=== PATIENT | female | born 1990 ===

== ENCOUNTER 2016-10-15 23:11 | Emergency (ER) | payer MEDICAID ==
[2016-10-15 23:26] VITALS: O2SAT 99
[2016-10-16] MEDS ORDERED: Sodium Chloride 0.9% 1,000 ML IV STA (00:30)
[2016-10-16 00:41] LABS: VENOUS BLOOD GAS BASE EXCESS 2.5 mmol/L (0.0-2.0); VENOUS BLOOD GAS PCO2 37 mmHg (40-60); VENOUS BLOOD GAS PO2 56 mm/Hg (30-55); VENOUS BLOOD PH 7.46 (7.32-7.43)
--- NOTE | 2016-10-16 00:54 | ED PDOC ---
HPI: General Adult Time Seen by Provider: 10/16/16 00:00 Chief Complaint (Nursing): Abdominal Pain Chief Complaint (Provider): diffuse bodyaches History Per: Patient History/Exam Limitations: no limitations Onset/Duration Of Symptoms: Days Have you had recent travel within the past 21 days to any of the following countries: [place], [place], [place] or [place]?: No Additional Complaint(s): The patient is a 26yo female, presents to the ED for evaluation of generalized bodyaches, abdominal pain and associated nausea, for the past 6 days. She also reports fever for the past day as well as cough and tightness in her chest. She denies taking any medications for her symptoms. Patient denies any vomiting dysuria, frequency, hematuria and offers no additional medical complaints. Past Medical History Reviewed: Historical Data, Nursing Documentation, Vital Signs Vital Signs: Last Vital Signs Temp 98.0 F 10/16/16 05:41 Pulse 84 10/16/16 05:41 Resp 18 10/15/16 23:23 BP 96/50 L 10/16/16 05:41 Pulse Ox 99 10/16/16 05:51 - Medical History PMH: No Chronic Diseases - Surgical History Surgical History: No Surg Hx - Family History Family History: States: Unknown Family Hx - Social History Current smoker - smoking cessation education provided: No Alcohol: None Drugs: Denies - Immunization History Hx Tetanus Toxoid Vaccination: No Hx Influenza Vaccination: No Hx Pneumococcal Vaccination: No - Home Medications Home Medications: Ambulatory Orders Medication Instructions Recorded Ibuprofen 1 tab PO Q6H PRN #15 tab 07/27/15 Naproxen 1 tab PO BID #20 tab 03/08/16 Sulfamethoxazole/Trimethoprim 1 tab PO BID #14 tab 03/08/16 [Bactrim DS 800 mg-160 mg] oxyCODONE/Acetaminophen [Percocet 1 ea PO Q6 #10 tab 03/08/16 5/325 mg Tab] Clindamycin [Cleocin] 300 mg PO QID #40 cap 03/10/16 DiphenhydrAMINE [Benadryl] 50 mg PO Q8 PRN #30 cap 03/17/16 levoFLOXacin 500 mg in D5W 500 mg IVPB DAILY #10 tab 10/16/16 [Levaquin 500MG] - Allergies Allergies/Adverse Reactions: Allergies Allergy/AdvReac Type Severity Reaction Status Date / Time No Known Allergies Allergy Verified 03/08/16 21:25 Review of Systems ROS Statement: Except As Marked, All Systems Reviewed And Found Negative Constitutional: Positive for: Fever, Weakness, Other (bodyaches) Cardiovascular: Positive for: Other (tightness) Respiratory: Positive for: Cough Gastrointestinal: Positive for: Nausea, Abdominal Pain, Diarrhea. Negative for : Vomiting Genitourinary Female: Negative for: Dysuria, Frequency, Hematuria Physical Exam - Reviewed Nursing Documentation Reviewed: Yes Vital Signs Reviewed: Yes - Physical Exam Appears: Positive for: Well, Non-toxic, No Acute Distress Head Exam: Positive for: ATRAUMATIC, NORMAL INSPECTION, NORMOCEPHALIC Skin: Positive for: Normal Color, Warm, DRY Eye Exam: Positive for: EOMI, Normal appearance, PERRL Neck: Positive for: Normal, Supple Cardiovascular/Chest: Positive for: Regular Rate, Rhythm Respiratory: Positive for: Normal Breath Sounds. Negative for: Respiratory Distress Gastrointestinal/Abdominal: Positive for: Normal Exam, Soft, Tenderness (mild diffuse tenderness) Extremity: Positive for: Normal ROM. Negative for: Deformity, Swelling Neurologic/Psych: Positive for: Alert, Oriented. Negative for: Motor/Sensory Deficits - Laboratory Results Result Diagrams: 10/16/16 00:31 10/16/16 00:31 - ECG O2 Sat by Pulse Oximetry: 99 (RA) Pulse Ox Interpretation: Normal Medical Decision Making Medical Decision Making: Time: 0020 Impression: Diffuse bodyaches, abdominal pain; Rule out Pneumonia Plan: -- Labs -- Rapid Flu -- chest x-ray -- Zofran 4 mg IV -- Toradol 30 mg IV -- Pepcid 20 mg IV -- IV Fluids Reassess Time: 0158 + Neutrophils, no white count. No UTI noted. Time: 021 Patient report persistent right flank pain. Ordered CT AP w/o contrast. Time: 033 CT AP IMPRESSION: Right lower lobe pneumonia No acute intra-abdominal or pelvic findings. Time: 043 Chest x-ray IMPRESSION: 1. Probable RLL pneumonia. Followup to resolution to exclude underlying pathology. 2. Incidental/non-acute findings are described above. Patient given IV antibiotics. answered questions pt given po abx and need to follow up outpt pt feels currently improved Time: 0500 Patient stable for discharge home. Advised to follow up with pcp. Scribe Attestation: Documented by Jacquelin Fatima acting as a scribe for Mark Leahy MD. Provider Attestation: All medical record entries made by the Scribe were at my direction and personally dictated by me. I have reviewed the chart and agree that the record accurately reflects my personal performance of the history, physical exam, medical decision making, and the department course for this patient. I have also personally directed, reviewed, and agree with the discharge instructions and disposition. Disposition - Clinical Impression Clinical Impression: Fever, Pneumonia - Patient ED Disposition Is Patient to be Admitted: No Counseled Patient/Family Regarding: Studies Performed, Diagnosis, Need For Followup - Disposition Referrals: Rick Hendricks, SHRAVAN, VOICER [Primary Care Provider] - Disposition: Routine/Home Disposition Time: 09:00 Condition: IMPROVED Additional Instructions: follow up with your primary doctor in 1-2 days return to the ED with any worsening or concerning symptoms. Prescriptions: levoFLOXacin 500 mg in D5W [Levaquin 500MG] 500 mg IVPB DAILY #10 tab Instructions: Bacterial Pneumonia (ED) Forms: [employer] (Bengali)
[2016-10-16 00:57] LABS: BASO % 0.1 % (0.0-2.0); EOS # 0.1 K/uL (0.0-0.7); HEMOGLOBIN 12.8 g/dL (12.0-16.0); LYMPH # 0.6 K/uL (1.0-4.3); LYMPH % 7.8 % (20.0-40.0); MEAN CELL VOLUME 95.2 fl (81.0-99.0); MEAN CORPUSCULAR HEMOGLOBIN 31.8 pg (27.0-31.0); MEAN CORPUSCULAR HGB CONC 33.4 g/dL (33.0-37.0); MEAN PLATELET VOLUME 10.6 fl (7.2-11.7); MONO # 0.4 K/uL (0.0-0.8); MONO % 5.9 % (0.0-10.0); NEUT # 6.2 K/uL (1.8-7.0); NEUT % 85.2 % (50.0-75.0); NRBC % 0.1 % (0.0-0.0); PLATELET COUNT 106 K/uL (130-400); RBC 4.02 Mil/uL (3.80-5.20); RED CELL DISTRIBUTION WIDTH 13.2 % (11.5-14.5); WHITE BLOOD COUNT 7.2 K/uL (4.8-10.8)
[2016-10-16 01:10] LABS: ALB/GLOB RATIO 1.4 (1.0-2.1); ALBUMIN 4.6 g/dL (3.5-5.0); ALT/SGPT 46 U/L (9-52); AST/SGOT 33 U/L (14-36); BLOOD UREA NITROGEN 13 mg/dl (7-17); CALCIUM 9.5 mg/dL (8.4-10.2); GFR AFRICAN-AMERICAN > 60; GFR NON-AFRICAN AMERICAN > 60
[2016-10-16 01:37] LABS: SQUAMOUS EPITHIAL 4 /hpf (0-5); URINE BILIRUBIN NEGATIVE (NEGATIVE); URINE BLOOD NEGATIVE (NEGATIVE); URINE CLARITY SLIGHTY-CLOUDY (Clear); URINE COLOR YELLOW (YELLOW); URINE GLUCOSE (UA) NEG (Normal); URINE LEUKOCYTE ESTERASE NEG Leu/uL (Negative); URINE NITRATE NEGATIVE (NEGATIVE); URINE PROTEIN NEGATIVE (NEGATIVE)
[2016-10-16 01:52] LABS: ACANTHOCYTES SLIGHT; ANISOCYTOSIS SLIGHT; EOSINOPHIL 1 % (0-7); HYPOCHROMIC SLIGHT; LYMPHOCYTE 17 % (20-50); MONOCYTE 6 % (0-10); NEUTROPHIL 76 % (42-75); PLATELET ESTIMATE MARKEDLY DECREASED (NORMAL); TOTAL CELLS COUNTED 100
[2016-10-16] MEDS ORDERED: Azithromycin 500 MG in Sodium Chloride 0.9% 250 ML IVPB STA (03:32)
[2016-10-16] MEDS ORDERED: cefTRIAXone (Rocephin) 1 gm Inj ONE (04:07)
--- NOTE | 2016-10-16 04:28 | RAD ---
EXAM: XR Chest, 2 Views CLINICAL HISTORY: 26 years old, female; Signs and symptoms; Cough and fever; Symptoms not specified; Additional info: Fever cough TECHNIQUE: Frontal and lateral views of the chest. COMPARISON: CT, 10/16/2016 FINDINGS: Lungs: Minimal patchy airspace disease RIGHT lower lobe, better visualized on CT. Pleural space: No pleural effusion. No pneumothorax. Heart: No cardiomegaly. Mediastinum: Unremarkable. Bones/joints: No acute fracture. IMPRESSION: 1. Probable RLL pneumonia. Followup to resolution to exclude underlying pathology. 2. Incidental/non-acute findings are described above.
[2016-10-16] MEDS ORDERED: Morphine 4 MG/ML VIAL ONE (04:37)
[2016-10-16] MEDS ORDERED: Morphine 4 MG/ML VIAL IV ONE (04:42)
[2016-10-16] MEDS ORDERED: Azithromycin 500 MG IV IVPB ONE (05:24)
--- NOTE | 2016-10-16 08:04 | CT ---
PROCEDURE: CT Abdomen and Pelvis without intravenous or oral contrast HISTORY: r flank pain COMPARISON: 09/15/2013 CT abdomen and pelvis. TECHNIQUE: Technique Contiguous axial images of the abdomen and pelvis without intravenous or oral contrast. Radiation dose: Total exam DLP = 546.57 mGy-cm. This CT exam was performed using one or more of the following dose reduction techniques: Automated exposure control, adjustment of the mA and/or kV according to patient size, and/or use of iterative reconstruction technique. FINDINGS: LOWER THORAX: Right lower lobe infiltrate consistent with pneumonia. LIVER: Unremarkable. GALLBLADDER AND BILE DUCTS: Unremarkable. PANCREAS: Unremarkable. No ductal dilatation. SPLEEN: Unremarkable. No splenomegaly. ADRENALS: Unremarkable. KIDNEYS AND URETERS: Unremarkable. No hydronephrosis. BLADDER: Unremarkable. No calculus. REPRODUCTIVE: Intrauterine contraceptive device (IUD) identified APPENDIX: Unremarkable. Normal appendix. STOMACH AND BOWEL: Unremarkable. No obstruction. No gross mural thickening. PERITONEUM: Unremarkable. No significant fluid collection. No free air. LYMPH NODES: Unremarkable. No enlarged lymph nodes. VASCULATURE: Unremarkable. No aortic aneurysm. BONES: No acute fracture. OTHER FINDINGS: None . IMPRESSION: No acute findings in the abdomen retroperitoneum or pelvis. Right lower lobe infiltrate suggestive of pneumonia. Concordant results (preliminary interpretation) provided by [employer]. Procedure Completed: 02:33. Preliminary ([facility]) Report: Dictated and Authenticated: 03:20. Final Interpretation: 08:02. October 16, 2016.
[2016-10-16 08:06] VITALS: BP 110/68; PULSE 79; RESP 16; TEMP 98.1
== END 2016-10-16 08:05 | disposition home or self-care (01) ==
LOC: H.ER 23:11
DX: J18.9 Pneumonia, unspecified organism (principal); R05 Cough

== ENCOUNTER 2017-08-13 15:45 | Emergency (ER) | payer MEDICAID ==
[2017-08-13 15:54] VITALS: RESP 16; TEMP 97.7; O2SAT 98
[2017-08-13] MEDS ORDERED: Sodium Chloride 0.9% 1,000 ML IV STA (16:29)
[2017-08-13 17:31] LABS: BASO % 0.2 % (0.0-2.0); EOS % 0.9 % (0.0-4.0); HEMOGLOBIN 11.7 g/dL (12.0-16.0); LYMPH # 2.1 K/uL (1.0-4.3); LYMPH % 39.3 % (20.0-40.0); MEAN CELL VOLUME 91.4 fl (81.0-99.0); MEAN CORPUSCULAR HEMOGLOBIN 30.9 pg (27.0-31.0); MEAN CORPUSCULAR HGB CONC 33.8 g/dL (33.0-37.0); MEAN PLATELET VOLUME 10.3 fl (7.2-11.7); MONO # 0.5 K/uL (0.0-0.8); MONO % 9.6 % (0.0-10.0); NEUT # 2.7 K/uL (1.8-7.0); NRBC % 0.1 % (0.0-0.0); RBC 3.78 Mil/uL (3.80-5.20); RED CELL DISTRIBUTION WIDTH 14.3 % (11.5-14.5); WHITE BLOOD COUNT 5.4 K/uL (4.8-10.8)
--- NOTE | 2017-08-13 18:29 | US ---
HISTORY: Dysfunctional vaginal bleeding Menstrual status: LMP completing 2 weeks duration. IUD placed 3 years ago COMPARISON: None available. TECHNIQUE: Transvaginal only. Real -time technique with 2D, duplex and color Doppler FINDINGS: UTERUS: Measures 4.2 x 5.3 x 8.2 cm. Normal in size and appearance. No fibroid or other mass lesion seen. ENDOMETRIUM: Measures 5.9 mm in diameter. Intrauterine contraceptive device (IUD) identified in satisfactory position. CERVIX: No cervical abnormality identified.Incidental finding: Nabothian cysts the largest measures less than 1 cm RIGHT OVARY: Measures 2.2 x 2.3 x 3.1 cm. No solid mass. Normal flow. Multiple sub cm follicles and simple cyst 1.2 x 1.4 cm. LEFT OVARY: Measures 1.3 x 2.5 x 2.3 cm. No solid mass. Normal flow. Multiple subcentimeter follicles. FREE FLUID: No significant free fluid noted. OTHER FINDINGS: None. IMPRESSION: Satisfactory position of the intrauterine contraceptive device. Additional benign and/or incidental findings described above.
--- NOTE | 2017-08-13 18:50 | ED PDOC ---
HPI: Abdomen Time Seen by Provider: 08/13/17 16:30 Chief Complaint (Nursing): Abdominal Pain Chief Complaint (Provider): vaginal bleeding/headache History Per: Patient (26 y/o female here with complaint of ongoing vaginal bleeding x 2 weeks. Notes additional headache. Patient states she usually has normal menses.) Past Medical History Reviewed: Historical Data, Nursing Documentation, Vital Signs Vital Signs: Last Vital Signs Temp 97.7 F 08/13/17 15:52 Pulse 75 08/13/17 15:52 Resp 16 08/13/17 15:52 BP 107/69 08/13/17 15:52 Pulse Ox 98 08/13/17 15:52 - Family History Family History: States: Unknown Family Hx - Immunization History Hx Tetanus Toxoid Vaccination: No Hx Influenza Vaccination: No Hx Pneumococcal Vaccination: No - Home Medications Home Medications: Ambulatory Orders Medication Instructions Recorded Ibuprofen 1 tab PO Q6H PRN #15 tab 07/27/15 Naproxen 1 tab PO BID #20 tab 03/08/16 Sulfamethoxazole/Trimethoprim 1 tab PO BID #14 tab 03/08/16 [Bactrim DS 800 mg-160 mg] oxyCODONE/Acetaminophen [Percocet 1 ea PO Q6 #10 tab 03/08/16 5/325 mg Tab] Clindamycin [Cleocin] 300 mg PO QID #40 cap 03/10/16 DiphenhydrAMINE [Benadryl] 50 mg PO Q8 PRN #30 cap 03/17/16 levoFLOXacin 500 mg in D5W 500 mg IVPB DAILY #10 tab 10/16/16 [Levaquin 500MG] Naproxen 375 mg PO Q8 PRN #15 tablet 08/13/17 - Allergies Allergies/Adverse Reactions: Allergies Allergy/AdvReac Type Severity Reaction Status Date / Time unknown medication Allergy RASH Uncoded 08/13/17 15:51 Review of Systems ROS Statement: Except As Marked, All Systems Reviewed And Found Negative Genitourinary Female: Positive for: Vaginal Bleeding Neurological: Positive for: Headache Physical Exam - Reviewed Nursing Documentation Reviewed: Yes Vital Signs Reviewed: Yes - Physical Exam Appears: Positive for: Well, Non-toxic, No Acute Distress Head Exam: Positive for: ATRAUMATIC, NORMAL INSPECTION, NORMOCEPHALIC Skin: Positive for: Normal Color, Warm, DRY Eye Exam: Positive for: EOMI, Normal appearance, PERRL ENT: Positive for: Normal ENT Inspection Neck: Positive for: Normal, Painless ROM Cardiovascular/Chest: Positive for: Regular Rate, Rhythm Respiratory: Positive for: CNT, Normal Breath Sounds Gastrointestinal/Abdominal: Positive for: Normal Exam, Soft Pelvic Exam: Positive for: External Exam Normal, Speculum Exam Normal, Active Bleeding. Negative for: Bimanual Exam Normal, No Cerv. Motion Tender Back: Positive for: Normal Inspection Extremity: Positive for: Normal ROM Neurologic/Psych: Positive for: Alert, Oriented - Laboratory Results Result Diagrams: 08/13/17 16:51 Urine POC: Negative - ECG O2 Sat by Pulse Oximetry: 98 - Progress ED Course And Treament: us pelvic: IMPRESSION: Satisfactory position of the intrauterine contraceptive device. Additional benign and/or incidental findings described above. NS 1 liter 500 ml per hour x 1 liter reglan 10 mg iv x 1 dose Disposition - Clinical Impression Clinical Impression: Dysmenorrhea - Patient ED Disposition Is Patient to be Admitted: No - Disposition [facility] Disposition: Routine/Home Disposition Time: 18:52 Condition: FAIR Prescriptions: Naproxen 375 mg PO Q8 PRN #15 tablet PRN Reason: Pain, Moderate (4-7) Instructions: Menstrual Cramps (DC) Forms: [employer] (Greek) Print Language: OCCITAN
[2017-08-13 18:55] VITALS: BP 104/56; PULSE 69
== END 2017-08-13 19:01 | disposition home or self-care (01) ==
LOC: H.ER 15:45
DX: N94.6 Dysmenorrhea, unspecified (principal); R51 Headache
CPT/HCPCS: 76830; 81025; 85025; 96361; 96374; 99285; J2765; J7030

== ENCOUNTER 2017-08-27 15:24 | Emergency (ER) | payer MEDICAID ==
--- NOTE | 2017-08-27 16:32 | ED PDOC ---
HPI: Female Pain Time Seen by Provider: 08/27/17 15:54 Chief Complaint (Nursing): Abdominal Pain Chief Complaint (Provider): abdominal pain History Per: Patient History/Exam Limitations: no limitations Onset/Duration Of Symptoms: Days (x3), Worse Since (x3 days) Current Symptoms Are (Timing): Still Present Associated Symptoms: Back Pain, Urinary Symptoms (dysuria), Other (vaginal bleeding). denies: Fever, Chills Additional Complaint(s): Es Patel is a 26 year old female, with a past medical history of IUD x3 years ago, who presents to the emergency department complaining of a worsening abdominal pain, back pain, dysuria and vaginal bleeding onset for x3 days. Patient reports suprapubic pain with urination. She was originally seen here on August 13, she had an ultrasound done which came back normal and was diagnosed with dysmenorrhea. Patient was seen by MD in clinic who told her the ED had done all tests and there wasn't much he could do. However, patient states for the past x3 days the bleeding has worsened which prompted ED visit today. She denies any fever, chills, or other medical complaints. PMD: [facility] Abnormal Vaginal Bleeding: Yes Past Medical History Reviewed: Historical Data, Nursing Documentation, Vital Signs Vital Signs: Last Vital Signs Temp 98.1 F 08/27/17 15:30 Pulse 68 08/27/17 15:30 Resp 16 08/27/17 15:30 BP 118/73 08/27/17 15:30 Pulse Ox 97 08/27/17 15:30 - Medical History PMH: No Chronic Diseases - Surgical History Other surgeries: IUD - Family History Family History: States: Unknown Family Hx - Immunization History Hx Tetanus Toxoid Vaccination: No Hx Influenza Vaccination: No Hx Pneumococcal Vaccination: No - Home Medications Home Medications: Ambulatory Orders Medication Instructions Recorded Ibuprofen 1 tab PO Q6H PRN #15 tab 07/27/15 Naproxen 1 tab PO BID #20 tab 03/08/16 Sulfamethoxazole/Trimethoprim 1 tab PO BID #14 tab 03/08/16 [Bactrim DS 800 mg-160 mg] oxyCODONE/Acetaminophen [Percocet 1 ea PO Q6 #10 tab 03/08/16 5/325 mg Tab] Clindamycin [Cleocin] 300 mg PO QID #40 cap 03/10/16 DiphenhydrAMINE [Benadryl] 50 mg PO Q8 PRN #30 cap 03/17/16 levoFLOXacin 500 mg in D5W 500 mg IVPB DAILY #10 tab 10/16/16 [Levaquin 500MG] Naproxen 375 mg PO Q8 PRN #15 tablet 08/13/17 Nitrofurantoin Macrocrystals 100 mg PO BID #10 cap 08/27/17 [Macrobid] - Allergies Allergies/Adverse Reactions: Allergies Allergy/AdvReac Type Severity Reaction Status Date / Time No Known Allergies Allergy Verified 08/27/17 15:36 Review of Systems ROS Statement: Except As Marked, All Systems Reviewed And Found Negative Constitutional: Negative for: Fever, Chills Gastrointestinal: Positive for: Abdominal Pain (suprapubic) Genitourinary Female: Positive for: Dysuria, Vaginal Bleeding Musculoskeletal: Positive for: Back Pain Physical Exam - Reviewed Nursing Documentation Reviewed: Yes Vital Signs Reviewed: Yes - Physical Exam Appears: Positive for: Non-toxic Head Exam: Positive for: ATRAUMATIC, NORMOCEPHALIC Skin: Positive for: Normal Color, Warm, Dry Eye Exam: Positive for: Normal appearance Neck: Positive for: Painless ROM Cardiovascular/Chest: Positive for: Regular Rate, Rhythm. Negative for: Murmur Respiratory: Positive for: Normal Breath Sounds. Negative for: Respiratory Distress Gastrointestinal/Abdominal: Positive for: Tenderness (mild suprapubic) Back: Negative for: L CVA Tenderness, R CVA Tenderness, Vertebral Tenderness Extremity: Positive for: Normal ROM (upper and lower extremities). Negative for : Deformity, Swelling Neurologic/Psych: Positive for: Alert, Oriented. Negative for: Motor/Sensory Deficits - ECG O2 Sat by Pulse Oximetry: 97 (RA) Pulse Ox Interpretation: Normal Medical Decision Making Medical Decision Making: Time: 15:54 Initial Impression: dysuria & vaginal bleeding. Differential includes UTI, dysfunctional uteral bleed, displaced IUD. Initial Plan: --Urine --Urine dipstick --Pelvis/Transvag US --Reevaluation 08/13/17 Pelvis Transvag US FINDINGS: UTERUS: Measures 4.2 x 5.3 x 8.2 cm. Normal in size and appearance. No fibroid or other mass lesion seen. ENDOMETRIUM: Measures 5.9 mm in diameter. Intrauterine contraceptive device (IUD) identified in satisfactory position. CERVIX: No cervical abnormality identified.Incidental finding: Nabothian cysts the largest measures less than 1 cm RIGHT OVARY: Measures 2.2 x 2.3 x 3.1 cm. No solid mass. Normal flow. Multiple sub cm follicles and simple cyst 1.2 x 1.4 cm. LEFT OVARY: Measures 1.3 x 2.5 x 2.3 cm. No solid mass. Normal flow. Multiple subcentimeter follicles. FREE FLUID: No significant free fluid noted. OTHER FINDINGS: None. IMPRESSION: Satisfactory position of the intrauterine contraceptive device. Additional benign and/or incidental findings described above. 08/27/2017 Transvag Pelvic US FINDINGS: UTERUS: Measures 9.3 x 4.6 x 5.0 cm. Normal in size and appearance. No fibroid or other mass lesion seen. ENDOMETRIUM: Measures 6 mm in diameter. Intrauterine device noted appropriately positioned within the endometrial cavity. CERVIX: No cervical abnormality identified. RIGHT OVARY: Measures 2.9 x 2.0 x 2.7 cm. No solid mass. Normal flow. LEFT OVARY: Measures 2.3 x 2.2 x 2.1 cm. No solid mass. Normal flow. FREE FLUID: No significant free fluid noted. OTHER FINDINGS: None. IMPRESSION: Intrauterine device appropriately positioned within uterus. Otherwise unremarkable examination. Results were discussed with patient. She is stable and will be discharged. Return to the ED is symptoms persist or worsen. Follow up with PMD. ----- Scribe Attestation: Documented by Nato Dan, acting as a scribe for Pippa Armas MD. Provider Scribe Attestation: All medical record entries made by the Scribe were at my direction and personally dictated by me. I have reviewed the chart and agree that the record accurately reflects my personal performance of the history, physical exam, medical decision making, and the department course for this patient. I have also personally directed, reviewed, and agree with the discharge instructions and disposition. Disposition - Clinical Impression Clinical Impression: DUB (dysfunctional uterine bleeding), Dysuria - Patient ED Disposition Is Patient to be Admitted: No Doctor Will See Patient In The: Office Counseled Patient/Family Regarding: Studies Performed, Diagnosis, Need For Followup - Disposition Referrals: [facility] [Outside] Disposition: Routine/Home Disposition Time: 18:30 Condition: GOOD Additional Instructions: Follow up with your PCP in 2-3 days. Prescriptions: Nitrofurantoin Macrocrystals [Macrobid] 100 mg PO BID #10 cap Instructions: Dysuria, Adult (DC), Heavy Periods, Intrauterine Devices (IUD) Print Language: WELSH
--- NOTE | 2017-08-27 18:22 | US ---
HISTORY: suprapic pain vaginal bleeding COMPARISON: 08/13/2017 TECHNIQUE: Transabdominal and transvaginal FINDINGS: UTERUS: Measures 9.3 x 4.6 x 5.0 cm. Normal in size and appearance. No fibroid or other mass lesion seen. ENDOMETRIUM: Measures 6 mm in diameter. Intrauterine device noted appropriately positioned within the endometrial cavity. CERVIX: No cervical abnormality identified. RIGHT OVARY: Measures 2.9 x 2.0 x 2.7 cm. No solid mass. Normal flow. LEFT OVARY: Measures 2.3 x 2.2 x 2.1 cm. No solid mass. Normal flow. FREE FLUID: No significant free fluid noted. OTHER FINDINGS: None. IMPRESSION: Intrauterine device appropriately positioned within uterus. Otherwise unremarkable examination.
[2017-08-27 19:19] VITALS: BP 128/75; PULSE 76; RESP 17; TEMP 97.8; O2SAT 100
== END 2017-08-27 19:18 | disposition home or self-care (01) ==
LOC: H.ER 15:24
DX: N93.8 Other specified abnormal uterine and vaginal bleeding (principal); R30.0 Dysuria

== ENCOUNTER 2017-10-10 11:51 | Emergency (ER) | payer MEDICAID ==
[2017-10-10 12:00] VITALS: RESP 16; O2SAT 98
--- NOTE | 2017-10-10 12:50 | ED PDOC ---
HPI: Female Pain Chief Complaint (Provider): pos preg test, vaginal spotting History Per: Patient Onset/Duration Of Symptoms: Days Pain Scale Rating Of: 7 Quality Of Discomfort: Cramping Associated Symptoms: Nausea Additional Complaint(s): 27 yo F with no known medical hx presented to ED today with complaint of pelvic pain and vaginal bleeding x3 days; had positive test at home 10 days ago. Ten days ago she took test at home which was positive; went to her clinic in [place] where she states they did bloodwork, but as of 2 days ago results were not back. Two days ago she started having spotting, reddish brown, which continued this morning, and prompted her ED visit today. Also c/o nausea. Denies symptoms of dysuria, itching, burning, increased frequency of urination. Pt was last in [facility] ED for vaginal bleeding on 08/27, at that time had IUD which she states was removed on 08/28 due to continued bleeding. Pt states she was bleeding from mid-July to 08/29, the day after IUD removal. PMD: clinic in [place] PMH: none Surg: none OBhx: ; 2 NVD in 2009 and 2014, no complications Soc hx: denies tobacco, alcohol, drug use Allergies: nkda Meds: none <Lydia Greene - Last Filed: 10/10/17 15:45> <Delia Sanches - Last Filed: 10/10/17 16:41> Time Seen by Provider: 10/10/17 12:19 Chief Complaint (Nursing): Female Genitourinary Supervising Attending Note - Supervising Attending Note The Documented history was done by the: Physician Brewery Representative The documented physical exam was done by the: Physician Brewery Representative The documented procedures were done by the: Physician Brewery Representative - Attestation: I have personally seen and examined this patient.: Yes I have fully participated in the care of the patient.: Yes I have reviewed all pertinent clinical information, including history, physical exam and plan: Yes <Delia Sanches - Last Filed: 10/10/17 16:41> Past Medical History Reviewed: Nursing Documentation, Vital Signs Vital Signs: Last Vital Signs Temp 98.1 F 10/10/17 11:56 Pulse 70 10/10/17 11:56 Resp 16 10/10/17 11:56 BP 112/71 10/10/17 11:56 Pulse Ox 98 10/10/17 11:56 - Medical History PMH: No Chronic Diseases - Surgical History Surgical History: No Surg Hx - Family History Family History: States: Unknown Family Hx - Social History Alcohol: None Drugs: Denies - Immunization History Hx Tetanus Toxoid Vaccination: No Hx Influenza Vaccination: No Hx Pneumococcal Vaccination: No <Lydia Greene - Last Filed: 10/10/17 15:45> Vital Signs: Last Vital Signs Temp 98.1 F 10/10/17 11:56 Pulse 70 10/10/17 11:56 Resp 16 10/10/17 11:56 BP 112/71 10/10/17 11:56 Pulse Ox 98 10/10/17 16:16 <Delia Sanches - Last Filed: 10/10/17 16:41> - Home Medications Home Medications: Ambulatory Orders Medication Instructions Recorded Ibuprofen 1 tab PO Q6H PRN #15 tab 07/27/15 Naproxen 1 tab PO BID #20 tab 03/08/16 Sulfamethoxazole/Trimethoprim 1 tab PO BID #14 tab 03/08/16 [Bactrim DS 800 mg-160 mg] oxyCODONE/Acetaminophen [Percocet 1 ea PO Q6 #10 tab 03/08/16 5/325 mg Tab] Clindamycin [Cleocin] 300 mg PO QID #40 cap 03/10/16 DiphenhydrAMINE [Benadryl] 50 mg PO Q8 PRN #30 cap 03/17/16 levoFLOXacin 500 mg in D5W 500 mg IVPB DAILY #10 tab 10/16/16 [Levaquin 500MG] Naproxen 375 mg PO Q8 PRN #15 tablet 08/13/17 Nitrofurantoin Macrocrystals 100 mg PO BID #10 cap 08/27/17 [Macrobid] Nitrofurantoin Macrocrystals 100 mg PO BID #14 cap 10/10/17 [Macrobid] - Allergies Allergies/Adverse Reactions: Allergies Allergy/AdvReac Type Severity Reaction Status Date / Time No Known Allergies Allergy Verified 08/27/17 15:36 Review of Systems ROS Statement: Except As Marked, All Systems Reviewed And Found Negative Gastrointestinal: Positive for: Nausea Genitourinary Female: Positive for: Vaginal Bleeding, Pelvic Pain <Gershman,Lydia - Last Filed: 10/10/17 15:45> Physical Exam - Reviewed Nursing Documentation Reviewed: Yes Vital Signs Reviewed: Yes - Physical Exam Appears: Positive for: No Acute Distress Head Exam: Positive for: ATRAUMATIC Skin: Positive for: Normal Color, Warm, Dry Eye Exam: Positive for: Normal appearance, EOMI Cardiovascular/Chest: Positive for: Regular Rate, Rhythm Respiratory: Positive for: Normal Breath Sounds Gastrointestinal/Abdominal: Positive for: Bowel Sounds, Soft, Tenderness (LLQ) Pelvic Exam: Positive for: External Exam Normal, Bimanual Exam Normal, No Cerv. Motion Tender, No Masses, Discharge (yellow tinged discharge), Other (speculum exam and bimanual exam performed with educational institution curator: ERYN Ruiz in room). Negative for: Active Bleeding Extremity: Positive for: Normal ROM, Capillary Refill (2 sec). Negative for: Tenderness, Calf Tenderness, Deformity Neurologic/Psych: Positive for: Alert, Oriented, Other (no focal deficits) <Lydia Greene - Last Filed: 10/10/17 15:45> - Laboratory Results Result Diagrams: 10/10/17 13:03 10/10/17 13:30 - ECG O2 Sat by Pulse Oximetry: 98 <Lydia Greene - Last Filed: 10/10/17 15:45> - Laboratory Results Result Diagrams: 10/10/17 13:03 10/10/17 13:30 <Delia Sanches - Last Filed: 10/10/17 16:41> Medical Decision Making Medical Decision Making: Upreg positive; Impression: pelvic pain and spotting in setting of positive test - UA - CBC - CMP - bHCG - Type and Screen - Transvaginal U/s Pelvic exam (speculum exam and bimanual exam) done in presence of educational institution curator, pt' s ERYN Ruiz. On pelvic exam- yellowish discharge noted- GC/CL cultures taken. Transvaginal u/s: Ultrasound findings of intrauterine gestation early term with gestational sac without pole. Yolk sac identified. Gestational age based on sac measurements 6 weeks. Pt stable for discharge home; advised to take vitamins and to establish care with provider. Pt discussed w/ Dr. Hill and Dr. Sanches. <SaqiboliverLydia - Last Filed: 10/10/17 15:45> Disposition - Patient ED Disposition Is Patient to be Admitted: No - Disposition Disposition: Routine/Home Disposition Time: 15:49 <Lydia Greene - Last Filed: 10/10/17 15:45> <Delia Sanches - Last Filed: 10/10/17 16:41> - Clinical Impression Clinical Impression: Abdominal pain during , UTI (urinary tract infection) - Disposition Referrals: [facility] [Outside] Condition: STABLE Additional Instructions: Please start taking vitamins. Please establish care with provider - referral given to [facility] in [place], or you may return to your previous provider, or another provider of your choice. May use tylenol for pain, do not use ibuprofen (advil, motrin, aleve). Return to ED if bleeding/cramping, severe pain occurs. Prescriptions: Nitrofurantoin Macrocrystals [Macrobid] 100 mg PO BID #14 cap Instructions: Urinary Tract Infections in Adults Forms: [facility] (Armenian) Print Language: URDU
[2017-10-10 13:11] LABS: BASO % 0.3 % (0.0-2.0); EOS % 0.4 % (0.0-4.0); HEMOGLOBIN 12.7 g/dL (12.0-16.0); LYMPH % 37.9 % (20.0-40.0); MEAN CELL VOLUME 91.5 fl (81.0-99.0); MEAN CORPUSCULAR HGB CONC 33.9 g/dL (33.0-37.0); MEAN PLATELET VOLUME 9.5 fl (7.2-11.7); MONO # 0.6 K/uL (0.0-0.8); NEUT # 2.7 K/uL (1.8-7.0); NEUT % 50.4 % (50.0-75.0); NRBC % 0.1 % (0.0-0.0); RBC 4.09 Mil/uL (3.80-5.20); RED CELL DISTRIBUTION WIDTH 14.8 % (11.5-14.5); WHITE BLOOD COUNT 5.4 K/uL (4.8-10.8)
[2017-10-10 15:21] LABS: ALBUMIN 4.5 g/dL (3.5-5.0); ALT/SGPT 29 U/L (9-52); AST/SGOT 29 U/L (14-36); BLOOD UREA NITROGEN 11 mg/dl (7-17); CALCIUM 9.5 mg/dL (8.4-10.2); GFR NON-AFRICAN AMERICAN > 60
--- NOTE | 2017-10-10 15:26 | US ---
Date of service: 10/10/2017 HISTORY: Pelvic pain, vaginal bleeding. Beta HCG results: 00189. Recent removal of IUD (08/27/2017). COMPARISON: 08/27/2017 pelvic ultrasound TECHNIQUE: Standard protocol for this study/examination. FINDINGS: UTERUS: Measures 6 x 9.7 cm. Normal in size and appearance. No fibroid or other mass lesion seen. ENDOMETRIUM: Gestational sac measurement 1.66 cm corresponds to gestational age of 6 weeks. Yolk sac identified. No pole apparent. CERVIX: No cervical abnormality identified. RIGHT OVARY: Measures 2 x 3.1 x 3.6 cm. No solid mass. Normal flow. LEFT OVARY: Measures 1.2 x 3.2 x 2.9 cm. No solid mass. Normal flow. FREE FLUID: No significant free fluid noted. OTHER FINDINGS: None. IMPRESSION: Ultrasound findings of intrauterine gestation early term with gestational sac without pole. Yolk sac is identified. Gestational age by LMP 6 weeks. Gestational age based on sac measurement 6 weeks.
[2017-10-10 15:27] LABS: ALB/GLOB RATIO 1.3 (1.0-2.1)
[2017-10-10 16:28] LABS: SQUAMOUS EPITHIAL 9 /hpf (0-5); URINE BACTERIA MANY (<OCC); URINE BILIRUBIN NEGATIVE (NEGATIVE); URINE BLOOD MODERATE (NEGATIVE); URINE CLARITY CLOUDY (Clear); URINE COLOR YELLOW (YELLOW); URINE GLUCOSE (UA) NEG (Normal); URINE LEUKOCYTE ESTERASE LARGE Leu/uL (Negative); URINE PROTEIN NEGATIVE (NEGATIVE); URINE UROBILINOGEN 0.2-1.0 mg/dL (0.2-1.0)
[2017-10-10 19:30] VITALS: BP 114/78; PULSE 72; TEMP 98.4
== END 2017-10-10 17:05 | disposition home or self-care (01) ==
LOC: H.ER 11:51
DX: O23.40 Unspecified infection of urinary tract in pregnancy, unspecified trimester (principal)

== ENCOUNTER 2017-10-14 16:42 | Emergency (ER) | payer MEDICAID ==
[2017-10-14 17:18] VITALS: TEMP 98.2; O2SAT 100
[2017-10-14 18:24] LABS: SQUAMOUS EPITHIAL 2 /hpf (0-5); URINE BACTERIA OCC (<OCC); URINE BILIRUBIN NEGATIVE (NEGATIVE); URINE BLOOD MODERATE (NEGATIVE); URINE CLARITY SLIGHTY-CLOUDY (Clear); URINE COLOR YELLOW (YELLOW); URINE GLUCOSE (UA) NEG (Normal); URINE LEUKOCYTE ESTERASE MOD Leu/uL (Negative); URINE PROTEIN NEGATIVE (NEGATIVE); URINE UROBILINOGEN 0.2-1.0 mg/dL (0.2-1.0)
--- NOTE | 2017-10-14 18:27 | ED PDOC ---
HPI: Female Pain Time Seen by Provider: 10/14/17 17:27 Chief Complaint (Nursing): Female Genitourinary Chief Complaint (Provider): Female Genitourinary History Per: Patient History/Exam Limitations: no limitations Onset/Duration Of Symptoms: Hrs (x1) Current Symptoms Are (Timing): Still Present Additional Complaint(s): 27 year old female, at approximately 6 weeks in , arrives to ED with a complaint of bright red vaginal bleeding, onset of 1 hour. She denies any vaginal pain, nausea or vomiting (no change from her usual morning sickness) . PMD: [facility] Past Medical History Reviewed: Historical Data, Nursing Documentation, Vital Signs Vital Signs: Last Vital Signs Temp 98.2 F 10/14/17 17:16 Pulse 66 10/14/17 17:16 Resp 18 10/14/17 17:16 BP 103/63 10/14/17 17:16 Pulse Ox 100 10/14/17 17:16 - Medical History PMH: No Chronic Diseases - Surgical History Surgical History: No Surg Hx - Family History Family History: States: No Known Family Hx - Social History Current smoker - smoking cessation education provided: No Alcohol: None Drugs: Denies - Immunization History Hx Tetanus Toxoid Vaccination: No Hx Influenza Vaccination: No Hx Pneumococcal Vaccination: No - Home Medications Home Medications: Ambulatory Orders Medication Instructions Recorded Ibuprofen 1 tab PO Q6H PRN #15 tab 07/27/15 Naproxen 1 tab PO BID #20 tab 03/08/16 Sulfamethoxazole/Trimethoprim 1 tab PO BID #14 tab 03/08/16 [Bactrim DS 800 mg-160 mg] oxyCODONE/Acetaminophen [Percocet 1 ea PO Q6 #10 tab 03/08/16 5/325 mg Tab] Clindamycin [Cleocin] 300 mg PO QID #40 cap 03/10/16 DiphenhydrAMINE [Benadryl] 50 mg PO Q8 PRN #30 cap 03/17/16 levoFLOXacin 500 mg in D5W 500 mg IVPB DAILY #10 tab 10/16/16 [Levaquin 500MG] Naproxen 375 mg PO Q8 PRN #15 tablet 08/13/17 Nitrofurantoin Macrocrystals 100 mg PO BID #10 cap 08/27/17 [Macrobid] Nitrofurantoin Macrocrystals 100 mg PO BID #14 cap 10/10/17 [Macrobid] - Allergies Allergies/Adverse Reactions: Allergies Allergy/AdvReac Type Severity Reaction Status Date / Time No Known Allergies Allergy Verified 10/14/17 17:16 Review of Systems ROS Statement: Except As Marked, All Systems Reviewed And Found Negative Gastrointestinal: Negative for: Nausea, Vomiting (no change from her usual morning sickness) Genitourinary Female: Positive for: Vaginal Bleeding (bright red). Negative for : Pelvic Pain Physical Exam - Reviewed Nursing Documentation Reviewed: Yes Vital Signs Reviewed: Yes - Physical Exam Appears: Positive for: Well, No Acute Distress Head Exam: Positive for: ATRAUMATIC, NORMOCEPHALIC Skin: Positive for: Warm, Dry Eye Exam: Positive for: EOMI, PERRL ENT: Positive for: Tonsillar Exudate Neck: Positive for: Painless ROM, Supple Respiratory: Negative for: Accessory Muscle Use, Respiratory Distress Gastrointestinal/Abdominal: Positive for: Soft, Other (Assisted by Anca VARMA). Negative for: Tenderness, Mass, Guarding, Rebound Pelvic Exam: Positive for: External Exam Normal, No Cerv. Motion Tender, No Masses, Blood (dark maroon moderate). Negative for: Tender Uterus Back: Negative for: Decreased ROM Lymphatic: Negative for: Adenopathy Neurologic/Psych: Positive for: Alert. Negative for: Motor/Sensory Deficits - ECG O2 Sat by Pulse Oximetry: 100 (RA) Pulse Ox Interpretation: Normal Medical Decision Making Medical Decision Making: Initial Impression: Vaginal bleeding Differential includes but not limited to: threatened miscarriage, evitable miscarriage, ectopic , UTI Initial Plan: * BETA-HCG * Urine * Urine dipstick * Chlamydia/GC * Urine culture * UA * US OB transvaginal Time: 1730 --Upon review of old charts, patient was seen on 10/10/17 for brown vaginal spotting. US revealed normal yolk sac. (+) UTI. EXAM: US , Transvaginal EXAM DATE/TIME: 10/14/2017 5:40 PM CLINICAL HISTORY: 27 years old, female; Signs and symptoms; Lmp or gestational age (in weeks): ; Other: Spotting; ; Additional info: 6wks vb R/O ectopic TECHNIQUE: Real-time transvaginal obstetrical ultrasound of the maternal pelvis and a first trimester with image documentation. Transvaginal imaging was used for better evaluation of the fetus and adnexa. COMPARISON: No relevant prior studies available. FINDINGS: There is a single living intrauterine with an estimated gestational age of 6 weeks and 3 days based on the crown-rump length of 0.4 cm and mean sac diameter of 2.2 cm. heart rate of 113 beats per minute is identified. There is a yolk sac. There is a subchorionic bleed measuring 1.7 x 1.6 cm. There is no free fluid. There is no adnexal mass. Impression There is a single living intrauterine with an estimated gestational age of 6 weeks and 3 days. There is a small subchorionic bleed.Followup as clinically indicated. Thank you for allowing us to participate in the care of your patient. Dictated and Authenticated by: Marlyn Olguin MD 10/14/2017 7:41 PM Eastern Time ([place] & [place]) DW pt findings and plan of care. Used Arun [employer] of [employer] for Malay interpretation. All questions/concerns answered/addressed. Scribe Attestation: Documented by Terri Benavides, acting as a scribe for Ping Guevara MD. Provider Scribe Attestation: All medical record entries made by the Scribe were at my direction and personally dictated by me. I have reviewed the chart and agree that the record accurately reflects my personal performance of the history, physical exam, medical decision making, and the department course for this patient. I have also personally directed, reviewed, and agree with the discharge instructions and disposition. Disposition - Clinical Impression Clinical Impression: UTI (urinary tract infection), Threatened Counseled Patient/Family Regarding: Studies Performed, Diagnosis - Disposition Disposition: Routine/Home Disposition Time: 19:50 Condition: GOOD Additional Instructions: SEBASTIÁN BOLDEN EN 2-3 GARCÍA A CHEQAR DE NUEVO Instructions: Urinary Tract Infection, Adult (DC), Threatened Miscarriage (DC) Print Language: SAMI
[2017-10-14 19:56] VITALS: BP 93/49; PULSE 67; RESP 16
--- NOTE | 2017-10-15 14:36 | US ---
Date of service: 10/14/2017 PROCEDURE: 1st trimester ultrasound HISTORY: 6wks vb r/o ectopic COMPARISON: 08/27/2017 pelvic ultrasound. 10/10/2017 pelvic obstetrical ultrasound. TECHNIQUE: Standard protocol for this study/examination. FINDINGS: LMP: 08/28/2017 Prior examinations from the current : 10/10/2017 TECHNIQUE: Real-time 2D imaging, duplex and color Doppler. FINDINGS: Cardiac activity: Present Rate: 113 BPM Measurements: Lyndon rump length: 0.35 cm Gestational age based on CRL 6 weeks Gestational age 6 weeks 5 days based on gestational sac measurement 2.15 cm Gestational age derived from LMP: 6 weeks 5 days JESSY based on LMP: 06/04/2018 JESSY based on biometry: 06/06/2018 Gestational concordance Yolk sac identified Uterus: Unremarkable. Cervix: No Cervical abnormalities: Negative examination for cervical dilatation or effacement. Closed cervix measuring 4.4 cm Subchorionic hemorrhage: 0.3 x 1.6 x 1.7 UTERUS: 6.6 x 8 x 7.5 cm. ADNEXA: Right: 1.9 x 4 x 2.0 cm. Normal Doppler arterial waveform documented. Left: 2.3 x 1.4 x 2 cm. Normal Doppler arterial waveform documented Fluid in the cul-de-sac: None IMPRESSION: 6 weeks 3 days live intrauterine gestation. Gestational concordance documented. Small subchorionic hemorrhage. Concordant results (preliminary interpretation) provided by C-Note. Procedure Completed: 18:50. Preliminary (vRad) Report: Dictated and Authenticated: 19:41. Final Interpretation: 14:34. October 15, 2017.
== END 2017-10-14 20:08 | disposition home or self-care (01) ==
LOC: H.ER 16:42
DX: O23.41 Unspecified infection of urinary tract in pregnancy, first trimester (principal); O20.0 Threatened abortion; Z3A.01 Less than 8 weeks gestation of pregnancy

== ENCOUNTER 2018-02-21 21:08 | Emergency (ER) | payer MEDICAID ==
[2018-02-21 22:01] VITALS: BMI 32.9
--- NOTE | 2018-02-21 22:10 | OBHP ---
Datetime: 02/21/2018 22:04 IP Adm Impression: , intrauterine ; No Active Labor; Intact Membranes IP Chief Complaint Other: abd pain IP Admit Plan: Observation/Evaluation Admit Comment, IP Provider: IUP at 25+w [facility] c.o lower abd pain x 2d; midline; moves t oward umbilicus; some freq/dysuria; no urgency; no VB; no SROM. +FM; she does feel some vaginal dishc harge like cheese POBGYNH: x 2 full term PMH: denies PSH: denies NKA PSoH: deneis smoking ETOH drugs A: IUpa t25w lower abd pain = threatened PTL poss UTI Candidal vaginitis PLAN: FFN/UA/ tylenol if dischsarged home, will give Cephalexin x 7d and Terazol 7 Abdomen - PN: Normal Lungs - PN: Normal Heart - PN: Normal Thyroid - PN: Normal Neurologic - PN: Normal HEENT - PN: Normal General - PN: Normal FHR - Baseline A Provider: 140 Membranes, Provider: Intact Contraction Comments Provider: none Pool Provider: Negative IP Hx Assessment: The History has been Updated Vital Signs Provider: Reviewed; Within Normal Limits NICHD Variability Prov Fetus A: Moderate 6-25bpm NICHD Accel Fetus A IP Provider: 10X10 FHR Category Provider Fetus A: Category I NICHD Decel Fetus A IP Provider: None Dilatation, Provider: 0 Effacement, Provider: 0
[2018-02-21 22:40] LABS: SQUAMOUS EPITHIAL 2 /hpf (0-5); URINE BACTERIA RARE (<OCC); URINE BILIRUBIN NEGATIVE (NEGATIVE); URINE BLOOD NEGATIVE (NEGATIVE); URINE CLARITY CLEAR (Clear); URINE COLOR STRAW (YELLOW); URINE GLUCOSE (UA) NEG (NEGATIVE); URINE LEUKOCYTE ESTERASE NEGATIVE Leu/uL (Negative); URINE PROTEIN NEGATIVE (NEGATIVE); URINE UROBILINOGEN 0.2-1.0 mg/dL (0.2-1.0)
[2018-02-22 00:42] LABS: SPECIMEN COMMENT MUCOID-LIKE
--- NOTE | 2018-02-22 08:52 | OBDCSUM ---
Datetime: 02/21/2018 23:42 Discharged to, Provider: Home Follow up at, Provider: Ruy Dixon Disch Instr Activity: Normal activity Disch Instr Diet: Regular Discharge Diagnosis, Provider: Janice Labor - Undelivered Discharge Time: 02/22/2018 00:45 Follow up in weeks, Provider: Next scheduled appointment Disch Referrals: None
[2018-02-22 11:20] VITALS: BP 109/53; PULSE 83; RESP 18; TEMP 98
== END 2018-02-22 00:45 | disposition home or self-care (01) ==
LOC: H.EROB2 21:08
DX: O26.92 Pregnancy related conditions, unspecified, second trimester (principal); R10.2 Pelvic and perineal pain; R30.0 Dysuria; Z3A.25 25 weeks gestation of pregnancy; B37.3 Candidiasis of vulva and vagina

== ENCOUNTER 2018-04-27 18:39 | Emergency (ER) | payer MEDICAID ==
[2018-04-27 21:03] LABS: URINE BACTERIA RARE (<OCC); URINE BILIRUBIN NEGATIVE (NEGATIVE); URINE BLOOD NEGATIVE (NEGATIVE); URINE CLARITY SLIGHTY-CLOUDY (Clear); URINE COLOR STRAW (YELLOW); URINE GLUCOSE (UA) NEG (NEGATIVE); URINE LEUKOCYTE ESTERASE TRACE Leu/uL (Negative); URINE PROTEIN NEGATIVE (NEGATIVE); URINE UROBILINOGEN 0.2-1.0 mg/dL (0.2-1.0)
--- NOTE | 2018-04-27 21:52 | OBDCSUM ---
Datetime: 04/27/2018 21:32 Discharged to, Provider: Home Follow up at, Provider: Ruy Dixon Disch Instr Activity: Normal activity Disch Instr Diet: Regular Discharge Time: 04/27/2018 21:32 Follow up in weeks, Provider: 05/07/2018 @ 1030 am Disch Referrals: None Discharge Diagnosis Prov Other: pelvic pain affecting
[2018-04-28 02:30] VITALS: BP 94/61; PULSE 84; RESP 19; TEMP 97.8; O2SAT 99
== END 2018-04-27 21:45 | disposition home or self-care (01) ==
LOC: H.EROB2 18:39
DX: O26.93 Pregnancy related conditions, unspecified, third trimester (principal); M54.5 Low back pain; R30.0 Dysuria; R10.2 Pelvic and perineal pain

== ENCOUNTER 2018-05-28 00:45 | Emergency (ER) | payer MEDICAID ==
[2018-05-28 01:14] VITALS: BMI 35.1
[2018-05-28 02:11] LABS: SQUAMOUS EPITHIAL 2 /hpf (0-5); URINE BACTERIA FEW (<OCC); URINE BILIRUBIN NEGATIVE (NEGATIVE); URINE BLOOD MODERATE (NEGATIVE); URINE CLARITY SLIGHTY-CLOUDY (Clear); URINE COLOR STRAW (YELLOW); URINE GLUCOSE (UA) NEG (NEGATIVE); URINE LEUKOCYTE ESTERASE LARGE Leu/uL (Negative); URINE PROTEIN NEGATIVE (NEGATIVE); URINE UROBILINOGEN 0.2-1.0 mg/dL (0.2-1.0)
[2018-05-28 07:57] VITALS: BP 100/57; PULSE 83; TEMP 97.4; O2SAT 99
== END 2018-05-28 03:00 | disposition home or self-care (01) ==
LOC: H.EROB2 00:45
DX: O26.93 Pregnancy related conditions, unspecified, third trimester (principal); R10.2 Pelvic and perineal pain; R30.0 Dysuria; Z3A.39 39 weeks gestation of pregnancy